=== PATIENT | female | born 1990 | race Asian ===

== ENCOUNTER 2024-08-19 15:26 | Emergency (ER) | payer OTHER, SELFPAY ==
[2024-08-19 15:32] VITALS: BP 137/76
[2024-08-19 15:53] LABS: Urine Albumin Negative (Neg - Trace); Urine Bilirubin Negative (Negative); Urine Character Clear (Clear); Urine Color Yellow; Urine Glucose Negative (Negative); Urine Ketone Negative (Negative); Urine Leukocyte 2+ (Negative); Urine Nitrite Negative (Negative); Urine Occult Blood 3+ (Negative); Urine Urobilinogen Negative (Neg - 1+)
[2024-08-19 15:54] LABS: % Basophils 0.3 % (0-2); % Eosinophils 1.1 % (0-6); % Immature Granulocytes 0.2 % (0-0.5); % Lymphocytes 20.8 % (20.5-51.1); % Monocytes 8.1 % (1.7-9.3); % Neutrophils 69.5 % (42.2-75.2); Absolute Eosinophils 0.1 10^3/uL (0-0.7); Absolute Lymphocytes 1.8 10^3/uL (1.2-3.4); Absolute Monocytes 0.7 10^3/uL (0.1-0.6); Absolute Neutrophils 6.1 10^3/uL (1.4-6.5); Hematocrit 40.1 % (37.0-47.0); Hemoglobin 13.2 g/dL (12.0-16.0); Mean Corp Hgb Conc. 32.9 g/dL (33.0-37.0); Mean Corpuscular Hgb 28.4 pg (27.0-31.0); Mean Corpuscular Volume 86.4 fL (81.0-99.0); Mean Platelet Volume 9.1 fL (7.4-10.4); Nucleated Red Blood Cells % 0 %; Platelet Count 208 10^3/uL (130-400); Red Blood Cell Count 4.64 10^6/uL (4.20-5.40); Red Cell Dist. Width 12.3 % (11.5-14.5); White Blood Cell Count 8.8 10^3/uL (4.8-10.8)
[2024-08-19 15:59] LABS: Urine Squamous Cell 26-30 /LPF (Few)
[2024-08-19 16:00] LABS: Urine Bacteria Many (Negative)
[2024-08-19 16:15] LABS: ALT (SGPT) 32 U/L (0-35); AST (SGOT) 23 U/L (14-36); Albumin 4.4 g/dl (3.5-5.0); Alkaline Phosphatase 58 U/L (38-126); Blood Urea Nitrogen 15 mg/dl (7-17); Calcium 9.3 mg/dl (8.4-10.2); Carbon Dioxide 28 mmol/L (22-30); Chloride 107 mmol/L (98-107); Glucose 131 mg/dl (70-99); Lipase 39 U/L (23-300); Potassium 4.5 mmol/L (3.5-5.1); Sodium 143 mmol/L (135-145); Total Bilirubin 0.7 mg/dl (0.2-1.3); Total Protein 7.2 g/dl (6.3-8.2); eGFR > 60.00
--- NOTE | 2024-08-19 20:11 | ED.GENMED ---
History of Present Illness
<Travis Olmedo PA-C - Last Filed: 08/20/24 18:13>
General
Chief Complaint: Abdominal Pain
Time Seen by Provider: 08/19/24 16:20
History of Present Illness
History of Present Illness:
33-year-old female presents the emergency department for evaluation of left lower abdominal pain and nausea that is been ongoing for 8 to 9 days. She also reports frequent urination diarrhea and intermittent bloating of the abdomen. Diarrhea is
nonbloody. Denies any fevers chills or sweats. Prior history of cholecystectomy
Review of Systems
<Travis Olmedo PA-C - Last Filed: 08/20/24 18:13>
Review of Systems
Allergies reviewed?: Yes
All Other Systems: ROS reviewed and negative except as documented in HPI and ROS
Phy Exam
<Travis Olmedo PA-C - Last Filed: 08/20/24 18:13>
Physical Exam
Physical Exam:
GEN: Well appearing, NAD, WDWN
HEENT: Oral mucosa moist, no scleral icterus
Cardiac: Regular rate
Lung: No respiratory distress, no tachypnea
Abdomen: Soft, focal left lower quadrant tenderness, no rigidity
MSK: No gross deformity or injuries
Skin: Good color, no pallor or jaundice, no rashes
Neuro: AO x3, moves all extremities freely
Psych: Calm, cooperative
Course
<Travis Olmedo PA-C - Last Filed: 08/20/24 18:13>
Orders/Labs/Results
Orders:
Orders
08/19/24 15:44
Complete Blood Count/With Diff Urgent
Comprehensive Metabolic Panel Urgent
HCG, Serum Qualitative Screen Urgent
Comment: ADD ON
Lipase Urgent
Urinalysis Reflex To Culture Urgent
Date Specimen was Collected: 08/19/24
Time Specimen was Collected: 15:36
Urine Microscopic Reflex Cult Urgent
Urine Culture Urgent
BATSHEVA Source: U
Specimen Description:
Date Specimen was Collected: 08/19/24
Time Specimen was Collected: 15:36
08/19/24 18:41
CT Abd/Pel (IV only)-DH only Urgent
Comment:
Reason For Exam: LLQ pain
08/19/24 19:50
Add On- LAB Urgent
Tests Added?: HCG
08/19/24 22:23
US Pelvis W Transvag Combined Urgent
Comment:
Reason For Exam: L pelvic mass
08/20/24 00:18
Ketorolac [Toradol] 15 mg IV NOW STA
Abnormal Lab Results
08/19/24
15:44
MCHC 32.9 L g/dL
(33.0-37.0)
Absolute Monos (auto) 0.7 H 10^3/uL
(0.1-0.6)
Glucose 131 H mg/dl
(70-99)
Ur Occult Blood Reflex 3+ A
(Negative)
Leukocyte Esterase Rfl 2+ A
(Negative)
Urine RBC 3-6 A /HPF
(0-2)
Urine Bacteria (Reflex) Many A
(Negative)
08/19/24 15:44
08/19/24 15:44
Vital Signs
Initial and Last Documented VS:
Initial Vital Signs
Temp Pulse Resp BP Pulse Ox
98.3 F 95 15 137/76 98
08/19/24 15:32 08/19/24 15:32 08/19/24 15:32 08/19/24 15:32 08/19/24 15:32
Last Documented Vital Signs
Temp Pulse Resp BP Pulse Ox
98.3 F 95 15 137/76 98
08/19/24 15:32 08/19/24 15:32 08/19/24 15:32 08/19/24 15:32 08/19/24 15:32
<Jada Dye PA-C - Last Filed: 08/20/24 03:48>
Orders/Labs/Results
Orders:
Orders
08/19/24 15:44
Complete Blood Count/With Diff Urgent
Comprehensive Metabolic Panel Urgent
HCG, Serum Qualitative Screen Urgent
Comment: ADD ON
Lipase Urgent
Urinalysis Reflex To Culture Urgent
Date Specimen was Collected: 08/19/24
Time Specimen was Collected: 15:36
Urine Microscopic Reflex Cult Urgent
Urine Culture Urgent
BATSHEVA Source: U
Specimen Description:
Date Specimen was Collected: 08/19/24
Time Specimen was Collected: 15:36
08/19/24 18:41
CT Abd/Pel (IV only)-DH only Urgent
Comment:
Reason For Exam: LLQ pain
08/19/24 19:50
Add On- LAB Urgent
Tests Added?: HCG
08/19/24 22:23
US Pelvis W Transvag Combined Urgent
Comment:
Reason For Exam: L pelvic mass
08/20/24 00:18
Ketorolac [Toradol] 15 mg IV NOW STA
Abnormal Lab Results
08/19/24
15:44
MCHC 32.9 L g/dL
(33.0-37.0)
Absolute Monos (auto) 0.7 H 10^3/uL
(0.1-0.6)
Glucose 131 H mg/dl
(70-99)
Ur Occult Blood Reflex 3+ A
(Negative)
Leukocyte Esterase Rfl 2+ A
(Negative)
Urine RBC 3-6 A /HPF
(0-2)
Urine Bacteria (Reflex) Many A
(Negative)
08/19/24 15:44
08/19/24 15:44
Vital Signs
Initial and Last Documented VS:
Initial Vital Signs
Temp Pulse Resp BP Pulse Ox
98.3 F 95 15 137/76 98
08/19/24 15:32 08/19/24 15:32 08/19/24 15:32 08/19/24 15:32 08/19/24 15:32
Last Documented Vital Signs
Temp Pulse Resp BP Pulse Ox
98.3 F 95 15 137/76 98
08/19/24 15:32 08/19/24 15:32 08/19/24 15:32 08/19/24 15:32 08/19/24 15:32
<Travis Olmedo PA-C - Last Filed: 08/20/24 18:13>
MDM/Problems Addressed
MDM/Problems Addressed:
33-year-old female presents with lower abdominal pain. She initially was sent for an ultrasound however declined that she felt this was most likely diverticulitis, she was then sent for CT scan upon her request which unfortunately showed a large
left adnexal mass. Patient will be sent for ultrasound for further clarity given the potential concern for tubo-ovarian abscess or torsion on the radiology report. Clinically the patient presents more with an adnexal mass of cystic or neoplastic
etiologies and acute issue such as a TOA. Will be signed out to Jada Brandon PA-C pending ultrasound final report
<Jada Dye PA-C - Last Filed: 08/20/24 03:48>
*Critical Care Note
Total Time (30-74mins, 75-104mins- exclusive of procedures): Not Applicable
<Jada Dye PA-C - Last Filed: 08/20/24 03:48>
Update Note
Update Note:
Update Jada Dye PA-C:
Reassessed patient patient started develop some left lower back pain, patient given dose of Toradol. States that she does have some lower abdominal pain still but is improved. She has no nausea or vomiting. Did review pelvic ultrasound which
reveals a ovarian mass with normal flow, likely hemorrhagic in nature. Considering patient was found to have rajesh-ovarian edema on CAT scan, I did discuss case with IMPORT COORDINATOR on-call to discuss if patient should be admitted for further evaluation of
possible intermittent torsion. MOTION GRAPHICS ARTIST on-call feels that patient can be discharged with close outpatient follow-up in office this week and she will arrange to have the office call patient. Think this is reasonable considering patient is
well-appearing in no acute distress. Discussed close return precautions with patient. Patient stable for discharge.
ED Attending Note
<Travis Olmedo PA-C - Last Filed: 08/20/24 18:13>
-
Portions of this chart may have been created with voice recognition software.� Occasional wrong word or��sound alike� substitutions may have occurred due to the inherent limitations of voice recognition software.
Discharge Plan
Departure
Patient Disposition: Home (Routine Discharge)
Date of Disposition: 08/20/24
Time of Disposition: 00:50
Patient with high blood pressure during this ER visit?: Yes
Condition: Good
Discharge Problem:
Hemorrhagic ovarian cyst
Instructions: Pelvic Pain ED, Abdominal Pain, BLOOD PRESSURE
Referrals:
Iza Duran MD [Active] - Call in 1-3 days for appt
Nikko Nova MD [Family Provider] -
Activity Restrictions/Additional Instructions:
You can alternate Tylenol and Motrin as needed for your pain.
You should receive a call from [facility] to arrange prompt outpatient follow up. Should you not receive a call in the next 2 days, please call the attached number to schedule appointment please say you are seen in the emergency
department.
PLEASE RETURN EMERGENCY DEPARTMENT SHOULD YOU DEVELOP INCREASING PAIN, NAUSEA AND VOMITING, FEVERS OR CHILLS, CHEST PAIN, SHORTNESS OF BREATH, FAINTING SPELLS, VAGINAL BLEEDING, OR ANY OTHER SIGNS OR SYMPTOMS WORRISOME TO YOU.
Interventions
Interventions:
*Risk Screen - Suicide Last Done: 08/19/24 15:32
*General Assessment Last Done: 08/19/24 15:32
*Neglect/Abuse Screening Last Done: 08/19/24 15:32
*Nursing Disposition Last Done: 08/20/24 01:03
GL-Xcxpma-Tllbrahfwq Assessment Last Done: 08/19/24 16:44
Discharge Date and Time
Discharge Date/Time: 08/20/24 01:03
Print Language: ITALIAN
[2024-08-19 20:33] LABS: HCG, Serum Qualitative Screen Negative
[2024-08-20] MEDS: TORADOL 15 MG IV (00:23)
== END 2024-08-20 01:03 | disposition home or self-care (01) ==
LOC: EMR 15:26
PROVIDERS: Emergency Medicine; EMERGENCY PHYSICIAN Emergency Medicine; FAMILY PHYSICIAN Family Medicine
DX: N83.202 Unspecified ovarian cyst, left side (principal); Z90.49 Acquired absence of other specified parts of digestive tract
CPT/HCPCS: 99284; 74177; 76830; 76856; 80053; 81003; 81015; 83690; 84703; 85025; 87086; Q9967